=== PATIENT | male | born 1990 | race African-American/Black ===

== ENCOUNTER 2016-12-03 05:30 | Emergency (ER) | payer OTHER ==
[~2016-12-03] VITALS: Ht 170.2 cm; Wt 117.9 kg
[2016-12-03 05:45] VITALS: BP 156/79
[2016-12-03] MEDS ORDERED: ACET325T9 PO (06:40)
[2016-12-03] MEDS ORDERED: NAPR500T PO (06:40)
--- NOTE | 2016-12-03 06:42 | PHYS DOC ---
Past Medical History Past Medical History: No Pertinent History Past Surgical History: Other Additional Past Surgical Histo: R KNEE Smoking: Cigarettes, Greater than 1 pack/day Alcohol Use: None Drug Use: None Adult General Chief Complaint Chief Complaint: KNEE INJURY [facility] HPI Patient is a pleasant 26-year-old male with a prior history of ACL PCL repair and medial meniscal injury requiring surgical correction who presents with a knee injury sustained while on the job. Patient was exiting his vehicle when attempting to use his right leg to exit his vehicle he felt a hyperextension stress on the lateral aspect of the knee and across the patella. Patient has had a burning sensation and pain with examination since the injury occurred about an hour prior to arrival. He denies any numbness and tingling, he denies any specific valgus or varus stress only hyperflexion injury. Patient denies any direct trauma to the knee, denies any instability but a slight popping and turning pain below the patella. Patient's pain is moderate at this time he is not taking any medications as he is on duty. Patient denies any other complaints of hip pain ankle pain or foot pain. Review of Systems Review of Systems Constitutional: Denies fever or chills [] Respiratory: Denies cough or shortness of breath [] Cardiovascular: No additional information not addressed in HPI [] GI: Denies abdominal pain, nausea, vomiting, bloody stools or diarrhea [] : Denies dysuria or hematuria [] Musculoskeletal: His primary complaint is right knee pain Integument: Denies rash or skin lesions [] Neurologic: Denies headache, focal weakness or sensory changes [] [] Current Medications Current Medications Current Medications Medications (Trade) Dose Ordered Sig/[facility] Start Time Stop Time Status Last Admin Dose Admin Acetaminophen (Tylenol) 1,000 mg 1X ONCE 12/03/16 07:00 12/03/16 07:01 DC 12/03/16 07:00 1,000 MG Ibuprofen (Motrin) 400 mg 1X ONCE 12/03/16 07:00 12/03/16 07:01 DC 12/03/16 07:00 400 MG Allergies Allergies Allergies Coded Allergies Type Severity Reaction Last Updated Verified No Known Drug Allergies 12/03/16 No Physical Exam Physical Exam Vital signs on the chart within normal limits Constitutional: Well developed, well nourished, no acute distress, non-toxic appearance. [] Skin: Warm, dry, no erythema, no rash. [] Extremities: Patient's knee is examined in the supine position patient has a negative anterior and posterior draw. Patient does have some tenderness and a positive Alejandro's test, negative Roro's test, positive apply test. his is patellar mechanism is intact. He has great strength at flexion and extension at the knee. He has minimal if any knee effusion noted no warmth to the knee. No loss of sensation he has brisk capillary refill +2 brisk peripheral pulses at the dorsalis pedis no tenderness to palpation along the tibia fibula or distal ankle no tenderness along the hip. Neurologic: Alert and oriented X 3, normal motor function, normal sensory function, no focal deficits noted. [] Psychologic: Affect normal, judgement normal, mood normal. [] Current Patient Data Vital Signs Vital Signs Date Time Temp Pulse Resp B/P (MAP) Pulse Ox O2 Delivery O2 Flow Rate FiO2 12/03/16 05:45 98.6 81 16 98 Room Air 98.6 EKG EKG [] Radiology/Procedures Radiology/Procedures [] Course & Med Decision Making Course & Med Decision Making Pertinent Labs and Imaging studies reviewed. (See chart for details) Patient presents with what I suspect might be a lateral meniscus injury. With his localized tenderness and a positive Alejandro's and Apley's test that would be my consideration considering the fact that isn't operable and palpable pop and grinding with those maneuvers. Patient has an intact patellar mechanism concerning the fact that this occurred while on duty I will encourage him to follow-up with his primary care doctor and get into the rehabilitation system for proper evaluation and MRI of the knee. At this point patient was placed in a knee immobilizer after x-rays are completed and crutches. He will Be on limited duty until this evaluation is completed. []Patient's x-rays completed at approximately 10 minutes after 7 AM to 2016 3 view knee films demonstrate postoperative changes with no acute tibial plateau fracture no obvious hemarthrosis or to fracture of the proximal tibia and proximal fibula or distal femur. Impression I reviewed film results and plan for discharge. He is placed in a knee immobilizer and crutches and follow-up with his PCP for orthopedic referral. I did provide him orthopedic referral instructions and encouraged him to follow up as soon as possible to arrange for an MRI because of the positive provocative test done in the ER. We'll be provided nonnarcotic medications for his symptoms until he gets his drug screening. Dragon Disclaimer Dragon Disclaimer This electronic medical record was generated, in whole or in part, using a voice recognition dictation system. Departure Departure Impression: Primary Impression: Injury of meniscus of right knee Additional Impression: Derangement of meniscus due to injury of knee Disposition: 01 HOME, SELF-CARE Condition: STABLE Referrals: CYRUS FERNANDES MD (PCP) BERNICE SALDANA MD Patient Instructions: Knee - Cartilage (Meniscus) Injury, Knee Pain Additional Instructions: My discharge plan Follow up: In addition patient is asked to followup with their primary doctor, within a week for followup examination and to address patient's ongoing medical conditions. Patient is advised that in the Emergency Department primary complaints are addressed and only in light of known signs and symptoms. Patient should return immediately to the emergency department if new signs and symptoms develop or patient's condition worsens in any way. At time of discharge patient was in stable condition and had verbalized understanding of the discharge instructions. Although there is no acute fracture noted on x-ray today this does not mean subtle fractures are not missed on initial presentation. If your symptoms are not improved within 1 week or if symptoms worsen despite oral treatment with pain medications I would advise follow-up with your primary care doctor to have a repeat set of x-rays completed to ensure no subtle fractures were missed. Please understand that sometimes x-rays are missed red and if there is a misreading of your x-rays she will be contacted by the emergency room physician to talk about appropriate treatment. Scripts Acetaminophen (TYLENOL) 325 Mg Tablet 1-2 TAB PO QID, #60 TAB 2 Refills Prov: KATELYN ARRIAGA MD 12/03/16 Naproxen (NAPROSYN) 500 Mg Tablet 1 TAB PO BID, #14 TAB 1 Refill Prov: KATELYN ARRIAGA MD 12/03/16 Problem Qualifiers KATELYN ARRIAGA MD Dec 03, 2016 06:42
[2016-12-03] MEDS ORDERED: ACETAMINOPHEN 500 MG TABLET PO ONE (07:00)
[2016-12-03] MEDS ORDERED: IBUPROFEN 400 MG TABLET. PO ONE (07:00)
--- NOTE | 2016-12-03 07:52 | RAD ---
Right knee 3 views. History: Right knee pain, fall 3 views were taken of the right knee. There are changes from previous anterior cruciate ligament surgery. There is mild hypertrophic spurring. There is no fracture or joint effusion or acute osseous abnormality. Impression: 1. Previous anterior cruciate ligament surgery. 2. Hypertension
== END 2016-12-03 08:15 | disposition home or self-care (01) ==
LOC: ER 05:30
DX: M23.206 Derangement of unspecified meniscus due to old tear or injury, right knee (principal); F17.210 Nicotine dependence, cigarettes, uncomplicated; Z98.890 Other specified postprocedural states; I10 Essential (primary) hypertension; X50.9XXA Other and unspecified overexertion or strenuous movements or postures, initial encounter; Y93.89 Activity, other specified; Y99.8 Other external cause status; Y92.89 Other specified places as the place of occurrence of the external cause
CPT/HCPCS: 29505; 73562; 99284-25

== ENCOUNTER 2017-08-27 01:34 | Emergency (ER) | payer OTHER | END 2017-08-27 02:05 | disposition home or self-care (01) | LOC: ER 01:34 | DX: S89.91XA Unspecified injury of right lower leg, initial encounter (principal); X50.9XXA Other and unspecified overexertion or strenuous movements or postures, initial encounter; Y93.89 Activity, other specified; Y99.8 Other external cause status; Y92.89 Other specified places as the place of occurrence of the external cause | CPT/HCPCS: 99283 ==